=== PATIENT | male | born 1955 | race Caucasian/White ===

== ENCOUNTER 2024-12-07 10:30 | Day surgery (SDC) | payer MEDICARE, MEDICAID, SELFPAY ==
[2024-12-07 11:13] VITALS: BP 143/82; PULSE 63; RESP 18; TEMP 36.7; O2SAT 97; BMI 23.8
[2024-12-07 11:35] VITALS: BP 143/85; PULSE 60; RESP 12; O2SAT 96
[2024-12-07 11:40] VITALS: BP 164/86; PULSE 65; RESP 20; O2SAT 98
[2024-12-07 11:45] VITALS: BP 176/99; PULSE 78; RESP 17; O2SAT 98
[2024-12-07 11:51] VITALS: BP 153/89; PULSE 71; RESP 18; TEMP 36.6; O2SAT 94
[2024-12-07] MEDS: MIDAZOLAM INJ 1 MG/ML VIAL 2 ML (ASD USE ONLY) 2 MG IV (11:52)
[2024-12-07] MEDS: fentaNYL CIT INJ 50 mCg/ML AMP 2ML (ASD USE ONLY) IV (11:52)
[2024-12-07] MEDS: DiphenhydrAMINE INJ 50 MG/ML VIAL 25 MG IV (11:52)
[2024-12-07] MEDS: ONDANSETRON INJ 2 MG/ML INJ 2 ML 4 MG IV (11:55)
--- NOTE | 2024-12-07 15:29 | SUR.PHASEII ---
1151: Pt received for recovery. Report from Brenda BREEN. Pt groggy. Easily aroused with eye opening then drifts back to sleep. Resp even, unlabored. VS stable. Denies pain. 1215: Pt more awake, alert. Sitting up tolerating po fluids with no difficulty swallowing and no n/v. 1220: Pt fully awake, oriented x3. Pt assisted to restroom. Ambulation steady. 1240: Pt dressed and in transport chair. Pt and sister stated understanding of discharge instructions. Pt discharged from [facility] in stable condition.
== END 2024-12-07 12:40 | disposition home or self-care (01) ==
PROVIDERS: PCP Family Medicine; Referring Provider Specialist; Visit Provider Specialist
PROC: (CPT 43239; principal; 2024-12-07 11:00)
DX: K20.90 Esophagitis, unspecified without bleeding (principal); K29.70 Gastritis, unspecified, without bleeding
CPT/HCPCS: 43239; A4649; J1200; J2250; J2405; J3010